=== PATIENT | male | born 1985 | race Caucasian/White ===

== ENCOUNTER 2019-08-17 18:36 | Emergency (ER) | payer SELFPAY ==
--- NOTE | 2019-08-17 19:08 | EDM.PDOC ---
ED HPI GENERAL MEDICAL PROBLEM - General Chief Complaint: Lower Extremity Injury/Pain Stated Complaint: GOUT LEFT FOOT Time Seen by Provider: 08/17/19 19:03 Source of Information: Reports: Patient, RN Notes Reviewed History Limitations: Reports: No Limitations - History of Present Illness INITIAL COMMENTS - FREE TEXT/NARRATIVE: 33-year-old gentleman presents emergency department today requesting a work note for his gout flareup on his left great toe Left Feet Pain Score (Numeric/FACES): 8 - Related Data Allergies Allergy/AdvReac Type Severity Reaction Status Date / Time No Known Allergies Allergy Verified 08/17/19 18:55 Home Meds: Home Meds Ibuprofen [Ibu] 1 tab PO ASDIRECTED PRN 08/17/19 [History] Past Medical History Musculoskeletal History: Reports: Gout - Infectious Disease History Infectious Disease History: Reports: Chicken Pox Social & Family History - Family History Family Medical History: Noncontributory - Tobacco Use Smoking Status *Q: Current Every Day Smoker Years of Tobacco use: 11 Packs/Tins Daily: 0.2 - Caffeine Use Caffeine Use: Reports: Soda - Recreational Drug Use Recreational Drug Use: No Review of Systems - Review of Systems Review Of Systems: See Below Musculoskeletal: Reports: Foot Pain ED EXAM, GENERAL - Physical Exam Exam: See Below Free Text/Narrative:: Examination of the foot not appreciate any erythema there is no edema he is tender to palpation over the first metacarpal of the great toe left foot Exam Limited By: No Limitations General Appearance: Alert, WD/WN, No Apparent Distress Course - Vital Signs Last Recorded V/S: Last Vital Signs Temp 98.4 F 08/17/19 19:01 Pulse 70 08/17/19 19:01 Resp 13 08/17/19 19:01 BP 166/85 H 08/17/19 19:01 Pulse Ox 96 08/17/19 19:01 Departure - Departure Time of Disposition: 19:07 Disposition: Home, Self-Care 01 Condition: Fair Clinical Impression: Gout attack Qualifiers: Gout site: toe Gout etiology: unspecified cause Laterality: left Qualified Code (s): M10.9 - Gout, unspecified - Discharge Information Instructions: Gout, [id number] Referrals: PCP,None [Primary Care Provider] - Additional Instructions: Continue with your treatment already initiated, please followup with your primary care provider in 3-5 days if not better, please call return to the emergency department with worsening of symptoms. Sepsis Event Note - Evaluation Sepsis Screening Result: No Definite Risk - Focused Exam Vital Signs: Vital Signs Temp Pulse Resp BP Pulse Ox 08/17/19 19:01 98.4 F 70 13 166/85 H 96 08/17/19 18:54 98.4 F 70 13 166/85 H 96 Date Exam was Performed: 08/17/19 Time Exam was Performed: 19:06 - Assessment/Plan Plan: Assessment Acuity = acute Site and laterality = gout flareup Etiology = unknown Manifestations = pain Location of injury = Home Lab values = none Plan He is treating with ibuprofen and bar juice, follow-up primary care 3 to 5 days if not better This note was dictated using [employer] voice recognition software please call with any questions on syntax or grammar.
== END 2019-08-17 19:15 | disposition home or self-care (01) ==
LOC: JP.ED 18:36
CPT/HCPCS: 99282; 99283